=== PATIENT | male | born 1965 | race Hispanic/Latino ===

== ENCOUNTER 2016-10-21 02:25 | Emergency (ER) | payer OTHER ==
[~2016-10-21] VITALS: Ht 170.2 cm; Wt 120.2 kg
[~2016-10-21 02:25] MED LIST: AUGMENTIN 875 M1 TAB PO; PERCOCET 325 MG1 TA2 PO
[2016-10-21 02:43] VITALS: BP 140/82
--- NOTE | 2016-10-21 02:48 | ED DYSPNEA/ASTHMA COMPLAINT ---
History of Present Illness General Chief Complaint: Allergy Symptoms Stated Complaint: ? ALLERGIC REACTION DIFF BREATHING O2 AT 98% Source: patient Exam Limitations: no limitations Vital Signs & Intake/Output Vital Signs & Intake/Output Vital Signs Date Time Temp Pulse Resp B/P B/P Pulse O2 O2 Flow FiO2 Mean Ox Delivery Rate 10/21 248 98 Room Air 10/21 242 98.7 85 20 140/82 96 Room Air Allergies Coded Allergies: MDX - Shellfish (SHELLFISH) (UKNOKIERSTEN 12/24/13) Reconcile Medications AMOXICILLIN/POTASSIUM CLAV (Augmentin 875-125 Tablet) 875 MG/125 MG TAB 1 TAB PO BID PHARYNGITIS OXYCODONE HCL/ACETAMINOPHEN (Percocet 5-325 MG Tablet) 325 MG/5 MG TAB 1-2 TAB PO Q4-6 PRN PRN PAIN Prednisone 50 MG TABLET 1 TAB PO DAILY ALLERGIC REACTION Triage Nurses Notes Reviewed? yes Onset: Gradual Duration: hour(s): Timing: recent history Severity: mild Activities at Onset: none Prior Episodes/Possible Cause: occasional episodes Associated Symptoms: "My face is swelling" HPI: 51 yo gentleman h/o asthma presents with swelling of his face and mild wheeze. He notes that, "I was doing fine, but last night, I noticed one half of my face getting swollen and a little itchy and then tonight my other half of my face started swelling." He notes he ate strawberries and mangoes last night, "but I've had them before and it was fine." He is otherwise well, has plenty of albuterol at home. "I don't want to take benadryl because I have a job interview tomorrow." Past History Travel History Traveled to [place] past 21 day No Medical History Any Pertinent Medical History? see below for history Cardiovascular: hypertension, hyperlipidemia Respiratory: asthma Endocrine: diabetes Surgical History Surgical History: none Psychosocial History What is your primary language Faroese Tobacco Use: Never used Family History Hx Contributory? No Review of Systems Review of Systems Constitutional: Reports: no symptoms. EENTM: Reports: no symptoms. Respiratory: Reports: no symptoms. Cardiovascular: Reports: no symptoms. GI: Reports: no symptoms. Genitourinary: Reports: no symptoms. Musculoskeletal: Reports: no symptoms. Skin: Reports: no symptoms. Neurological/Psychological: Reports: no symptoms. Hematologic/Endocrine: Reports: no symptoms. Immunologic/Allergic: Reports: no symptoms. All Other Systems: Reviewed and Negative Physical Exam Physical Exam General Appearance: well developed/nourished, no apparent distress Head: atraumatic, normal appearance Eyes: Bilateral: normal appearance. Ears, Nose, Throat: normal pharynx, mild swelling and erythema of both cheeks and periorbital area Neck: normal inspection, supple, full range of motion Respiratory: normal breath sounds, chest non-tender, no respiratory distress, quiet respiration, lungs clear Gastrointestinal: normal bowel sounds, soft, non-tender, no organomegaly Extremities: normal inspection, normal capillary refill, normal range of motion, no edema Neurologic/Psych: no motor/sensory deficits, awake, alert, oriented x 3 Skin: intact, normal color, warm/dry Core Measures ACS in differential dx? No Severe Sepsis Present: No Septic Shock Present: No Progress Differential Diagnosis: asthma, bronchitis, CHF, allergic reaction Plan of Care: Current Medications Sig/José Luis Start time Last Medication Dose Stop Time Status Admin Prednisone 60 MG ONCE ONE 10/21 299 UNVr 10/21 030 Initial ED EKG: none Departure Departure Disposition: HOME OR SELF CARE Condition: Stable Clinical Impression Primary Impression: Allergic reaction Referrals: LAURO KENNEDY APRN (PCP/Family) Departure Forms: Customer Survey General Discharge Information Prescriptions: Current Visit Scripts Prednisone 1 TAB PO DAILY #3 TAB Comments 02 sat normal, pt feels well in ed, mild swelling of face... steroids give.. clsoe follow up advised. Critical Care Note Critical Care Note Critical Care Time: non-applicable
[2016-10-21] MEDS ORDERED: PREDNISONE50 M1 PO (02:52)
[2016-10-22] MEDS ORDERED: PREDNISONE10 M2 PO (05:53)
== END 2016-10-21 03:07 ==
LOC: ERH 02:25
DX: T78.40XA Allergy, unspecified, initial encounter (principal)

== ENCOUNTER 2016-10-22 05:33 | Emergency (ER) | payer OTHER ==
[~2016-10-22] VITALS: Ht 170.2 cm; Wt 120.2 kg
[~2016-10-22 05:33] MED LIST changes: +PREDNISONE50 M1 PO
[2016-10-22 05:43] VITALS: BP 173/99
[2016-10-22] MEDS ORDERED: PREDNISONE10 M2 PO (05:53)
--- NOTE | 2016-10-22 05:53 | ED SKIN/ALLERGY COMPLAINT ---
History of Present Illness General Chief Complaint: Eye Problems Stated Complaint: ALERGIC REACTION? SWOLLEN EYES Source: patient, old records Exam Limitations: no limitations Vital Signs & Intake/Output Vital Signs & Intake/Output Vital Signs Date Time Temp Pulse Resp B/P B/P Pulse O2 O2 Flow FiO2 Mean Ox Delivery Rate 10/22 0543 96.7 85 16 173/99 97 Room Air Allergies Coded Allergies: MDX - Shellfish (SHELLFISH) (UKNOWPriscila 12/24/13) Reconcile Medications AMOXICILLIN/POTASSIUM CLAV (Augmentin 875-125 Tablet) 875 MG/125 MG TAB 1 TAB PO BID PHARYNGITIS OXYCODONE HCL/ACETAMINOPHEN (Percocet 5-325 MG Tablet) 325 MG/5 MG TAB 1-2 TAB PO Q4-6 PRN PRN PAIN Prednisone 50 MG TABLET 1 TAB PO DAILY ALLERGIC REACTION Prednisone 10 MG TABLET 1 TAB PO DAILY ALLERGIC REACTION TAKE 4 TABS FOR 3 DAYS THEN TAKE 3 TABS FOR 3 DAYS THEN TAKE 2 TABS FOR 3 DAYS THEN TAKE 1 TAB FOR 3 DAYS Triage Note: PT TO ED FOR ITCHY/SWOLLEN EYES. ?ALLERGIC RXN. SEEN YESTERDAY FOR SAME. PRESCRIBED PREDNISONE. LAST TOOK BENADRYL AT 1999 LAST PM. AWAKE/ALERT WITH EASY WOB, O2 SAT 97% ON RA, DENIES SOB. Triage Nurses Notes Reviewed? yes HPI: Patient was seen here early Thursday morning when his eyes became itchy and began to swell. Patient was given 50 mg of prednisone to take once a day for 3 days. Patient states that his eyes are still swollen and he has an interview today. Patient states that Benadryl makes him too tired so he was hoping to get something else. There is no blurry vision. Patient is able to open up his eyes without difficulty. There is no difficulty breathing or swallowing. There is no oral pharyngeal edema. There is no rash. Past History Travel History Traveled to [place] past 21 day No Medical History Any Pertinent Medical History? see below for history Neurological: NONE EENT: NONE Cardiovascular: hypertension, hyperlipidemia Respiratory: asthma Gastrointestinal: NONE Hepatic: NONE Renal: NONE Musculoskeletal: NONE Psychiatric: NONE Endocrine: diabetes Surgical History Surgical History: none Psychosocial History What is your primary language Tajik Tobacco Use: Never used ETOH Use: occasional use Illicit Drug Use: denies illicit drug use Family History Hx Contributory? No Review of Systems Review of Systems Constitutional: Reports: no symptoms. EENTM: Reports: see HPI. Respiratory: Reports: no symptoms. Cardiovascular: Reports: no symptoms. GI: Reports: no symptoms. Musculoskeletal: Reports: no symptoms. Neurological/Psychological: Reports: no symptoms. Immunologic/Allergic: Reports: no symptoms. Physical Exam Physical Exam General Appearance: well developed/nourished, alert, awake Head: atraumatic Eyes: Bilateral: PERRL, EOMI, other (SLIGHT SWELLING TO EYELIDS). Ears, Nose, Throat: normal pharynx, normal ENT inspection, hearing grossly normal Respiratory: normal breath sounds, chest non-tender, no respiratory distress, lungs clear Cardiovascular: regular rate/rhythm, normal peripheral pulses Neurologic/Psych: no motor/sensory deficits, awake, alert, oriented x 3, normal gait, normal mood/affect Skin: intact, normal color, warm/dry Progress Differential Diagnosis: allergic reaction Plan of Care: LENGTHEN STEROID TAPER Departure Departure Disposition: HOME OR SELF CARE Condition: Stable Clinical Impression Primary Impression: Allergic reaction Referrals: LAURO KENNEDY APRN (PCP/Family) Additional Instructions: USE A COOL WASH CLOTH START THE PRESCRIPTION YOU RECIEVED TODAY AFTER FINISHING THE PRESCRIPTION YOU RECEIVED Thursday. Departure Forms: Customer Survey General Discharge Information Prescriptions: Current Visit Scripts Prednisone 1 TAB PO DAILY #30 TAB TAKE 4 TABS FOR 3 DAYS THEN TAKE 3 TABS FOR 3 DAYS THEN TAKE 2 TABS FOR 3 DAYS THEN TAKE 1 TAB FOR 3 DAYS
== END 2016-10-22 05:59 ==
LOC: ERH 05:33
DX: T78.40XA Allergy, unspecified, initial encounter (principal)